=== PATIENT | male | born 1980 | race Two or more races ===

== ENCOUNTER 2020-01-04 08:14 | Outpatient (CLI) | payer OTHER | END 2020-01-04 10:20 | disposition home or self-care (01) | LOC: NUCLEAR 08:14 | PROVIDERS: ATTEND Internal Medicine Endocrinology, Diabetes & Metabolism | DX: E05.00 Thyrotoxicosis with diffuse goiter without thyrotoxic crisis or storm (principal) | CPT/HCPCS: 78012; A9531 ==

== ENCOUNTER 2020-01-05 11:02 | Outpatient (CLI) | payer OTHER | END 2020-01-05 11:21 | disposition home or self-care (01) | LOC: NUCLEAR 11:02 | PROVIDERS: ATTEND Internal Medicine Endocrinology, Diabetes & Metabolism | DX: E05.00 Thyrotoxicosis with diffuse goiter without thyrotoxic crisis or storm (principal) | CPT/HCPCS: 78013; A9512 ==

== ENCOUNTER 2020-10-10 09:49 | Emergency (ER) | payer OTHER ==
[~2020-10-10] VITALS: Ht 185.4 cm; Wt 99.8 kg
[2020-10-10] MEDS ORDERED: DUI500 PO (11:29)
== END 2020-10-10 11:36 | disposition home or self-care (01) ==
LOC: ER 09:49
DX: S01.322A Laceration with foreign body of left ear, initial encounter (principal); W45.8XXA Other foreign body or object entering through skin, initial encounter; Y93.89 Activity, other specified; Y92.098 Other place in other non-institutional residence as the place of occurrence of the external cause; Y99.8 Other external cause status

== ENCOUNTER 2021-04-18 09:08 | Outpatient (CLI) | payer OTHER ==
[~2021-04-18 09:08] MED LIST: DUI500 PO
== END 2021-04-18 09:23 | disposition home or self-care (01) ==
LOC: MRI 09:08
DX: M77.8 Other enthesopathies, not elsewhere classified (principal)
CPT/HCPCS: 73718

== ENCOUNTER 2022-01-18 23:04 | Outpatient (CLI) | payer OTHER | END 2022-01-18 23:55 | disposition home or self-care (01) | LOC: LAB 23:04 | PROVIDERS: ATTEND Obstetrics & Gynecology | DX: Z20.828 Contact with and (suspected) exposure to other viral communicable diseases (principal); Z20.818 Contact with and (suspected) exposure to other bacterial communicable diseases ==